=== PATIENT | male | born 1940 | race Caucasian/White ===

== ENCOUNTER 2020-07-04 15:41 | Emergency (ER) | payer MEDICARE, OTHER ==
[2020-07-04] MEDS ORDERED: Acetaminophen 500 MG Tab PO ONE (16:16)
[2020-07-04] MEDS ORDERED: Bisacodyl 10 MG Supp RECTAL ONE (16:18)
[2020-07-04] MEDS ORDERED: Sodium Chloride 0.9% 1,000 ML IV ONE (16:28)
--- NOTE | 2020-07-04 16:44 | CR ---
[id number] RAD/RAD Abdomen Flat Plate 1V Exam: RAD Abdomen Flat Plate 1V Clinical Data: ABDOMINAL PAIN COMPARISON: CORRELATION IS MADE WITH THE BARIUM ENEMA OF OCTOBER 06, 2016 FINDINGS: There is mild large bowel distention There is no significant large fecal volume There is no organomegaly or pathologic calcification IMPRESSION: NONSPECIFIC MILD LARGE BOWEL DISTENTION Demetri Bower MD 07/04/20 [id number] Thank you for allowing us to participate in the care of your patient.
[2020-07-04 17:04] VITALS: BP 106/72; PULSE 67
--- NOTE | 2020-07-04 17:06 | EDM.PDOC ---
ED HPI GENERAL MEDICAL PROBLEM - General Chief Complaint: General Stated Complaint: constipation, fever Time Seen by Provider: 07/04/20 16:00 Source of Information: Reports: Patient History Limitations: Reports: No Limitations - History of Present Illness INITIAL COMMENTS - FREE TEXT/NARRATIVE: 79-year-old male presents emergency room with complaints of fever and possible constipation. Patient states that he has been on an oral antibiotic for cellulitis of his left hand for approximately 1 month. He has not had a stool for the last 3 days and began feeling feverish today. He is noticed a little bit of left lower quadrant discomfort today. He denies any chills. He denies any respiratory symptoms. No chest pain or shortness of breath complaints. He denies any urinary pain or discomfort or retention. 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 - Related Data Allergies Allergy/AdvReac Type Severity Reaction Status Date / Time No Known Drug Allergies Allergy NKDA Verified 07/04/20 15:53 Home Meds: Home Meds Garlic 1 each PO DAILY 10/12/16 [History] Glucosamine [Glucosamine Sulfate] 500 mg PO DAILY 10/12/16 [History] Multivitamin with Minerals [Multiple Vitamin] 1 tab PO DAILY 10/12/16 [History] Cardinal-3/DHA/Epa/Fish Oil [Cardinal-3 Fish Oil 1,000 MG Sfgl] 1,000 mg PO DAILY 10/12/16 [History] Simvastatin [Zocor] 40 mg PO BEDTIME 10/12/16 [History] Terazosin [Hytrin] 5 mg PO DAILY 10/12/16 [History] Sulfamethoxazole/Trimethoprim [Bactrim Ds Tablet] 1 each PO BID 07/04/20 [History] Past Medical History HEENT History: Reports: Impaired Vision Musculoskeletal History: Reports: Arthritis Oncologic (Cancer) History: Reports: Prostate - Infectious Disease History Infectious Disease History: Reports: Measles, Mumps - Past Surgical History GI Surgical History: Reports: Colonoscopy Social & Family History - Family History Family Medical History: Noncontributory - Tobacco Use Smoking Status *Q: Former Smoker Used Tobacco, but Quit: Yes Month/Year Tobacco Last Used: quit 55-60 yrs ago - Caffeine Use Caffeine Use: Reports: Coffee, Soda, Tea - Recreational Drug Use Recreational Drug Use: No ED ROS GENERAL - Review of Systems Review Of Systems: See Below Constitutional: Reports: Fever HEENT: Reports: No Symptoms Respiratory: Reports: No Symptoms Cardiovascular: Reports: No Symptoms Endocrine: Reports: No Symptoms GI/Abdominal: Reports: Abdominal Pain, Constipation. Denies: Distension : Reports: No Symptoms Musculoskeletal: Reports: No Symptoms Skin: Reports: No Symptoms Neurological: Reports: No Symptoms Psychiatric: Reports: No Symptoms Hematologic/Lymphatic: Reports: No Symptoms Immunologic: Reports: No Symptoms ED EXAM, GENERAL - Physical Exam Exam: See Below Exam Limited By: No Limitations General Appearance: Alert, WD/WN, No Apparent Distress Eye Exam: Bilateral Eye: EOMI, PERRL (pupils equal) Ears: Hearing Grossly Normal Nose: Normal Inspection Throat/Mouth: Normal Voice, No Airway Compromise Head: Atraumatic, Normocephalic Neck: Normal Inspection, Supple, Full Range of Motion Respiratory/Chest: No Respiratory Distress, Lungs Clear, Normal Breath Sounds Cardiovascular: Normal Peripheral Pulses, Regular Rate, Rhythm, No Murmur GI/Abdominal: Normal Bowel Sounds, Soft, No Distention, Tender. No: Guarding, Rigid, Rebound Back Exam: Normal Inspection, Full Range of Motion Extremities: Normal Inspection, Normal Range of Motion Neurological: Alert, Oriented, CN II-XII Intact, Normal Cognition, Normal Gait, No Motor/Sensory Deficits Psychiatric: Normal Affect, Normal Mood Skin Exam: Warm, Dry, Intact, Normal Color, No Rash. No: Erythema, Rash Lymphatic: No Adenopathy Course - Vital Signs Last Recorded V/S: Last Vital Signs Temp 98.5 F 07/04/20 17:17 Pulse 67 07/04/20 17:03 Resp 18 07/04/20 17:03 BP 106/72 07/04/20 17:03 Pulse Ox 94 L 07/04/20 17:03 - Orders/Labs/Meds Orders: Active Orders 24 hr Category Date Time Status CULTURE URINE [RM] Stat Lab 07/04/20 16:18 Received Labs: Laboratory Tests 07/04/20 07/04/20 07/04/20 Range/Units 16:06 16:09 16:18 WBC 9.64 (5.00-10.00) 10^3/uL RBC 4.33 L (4.50-6.00) 10^6/uL Hgb 14.2 (13.0-17.0) g/dL Hct 42.0 (40.0-52.0) % MCV 97.0 H (82.0-92.0) fL MCH 32.8 H (27.0-31.0) pg MCHC 33.8 (32.0-36.0) g/dL RDW 13.5 (11.5-14.5) % Plt Count 130 L (150-400) 10^3/uL MPV 10.1 (7.4-10.4) fL Immature Gran % (Auto) 0.1 (0.0-5.0) % Neut % (Auto) 77.1 H (50.0-70.0) % Lymph % (Auto) 8.5 L (20.0-40.0) % [place] % (Auto) 12.7 H (2.0-8.0) % Eos % (Auto) 1.6 (1.0-3.0) % Baso % (Auto) 0.0 (0.0-1.0) % Neut # (Auto) 7.44 H (2.50-7.00) 10^3/uL Lymph # (Auto) 0.82 L (1.00-4.00) 10^3/uL [place] # (Auto) 1.22 H (0.10-0.80) 10^3/uL Eos # (Auto) 0.15 (0.10-0.30) 10^3/uL Baso # (Auto) 0.00 (0.00-0.10) 10^3/uL Immature Gran # (Auto) 0.01 (0.00-0.50) 10^3/uL Sodium 135 L (136-145) mmol/L Potassium 4.2 (3.3-5.3) mmol/L Chloride 101 (98-115) mmol/L Carbon Dioxide 22.0 (21.0-32.0) mmol/L Anion Gap 16.2 H (5-15) mmol/L BUN 19 (6-25) mg/dL Creatinine 1.44 H (0.51-1.17) mg/dL Est Cr Clr Drug Dosing 41.54 mL/min Estimated GFR (MDRD) 47 mL/min Glucose 117 H (75 - 99) mg/dL Calcium 8.9 (8.7-10.3) mg/dL C-Reactive Protein 9.8 H (0.0-0.9) mg/dL Specimen Type Urinvoid Urine Color Yellow (YELLOW) Urine Appearance Slightly cloudy H (CLEAR) Urine pH 7.0 (5.0-9.0) Ur Specific [place] 1.025 (1.005-1.030) Urine Protein Trace H (NEGATIVE) mg/dL Urine Glucose (UA) Negative (NEGATIVE) mg/dL Urine Ketones Negative (NEGATIVE) mg/dL Urine Occult Blood Trace-intact H (NEGATIVE) Urine Nitrite Negative (NEGATIVE) Urine Bilirubin Moderate H (NEGATIVE) Urine Urobilinogen 2.0 H (0.2-1.0) E.U./dL Ur Leukocyte Esterase Small H (NEGATIVE) Urine RBC 0-5 (0-5) /HPF Urine WBC >100 H (0-5) /HPF Ur Epithelial Cells Few /LPF Urine Bacteria Rare (NONE TO FEW) /HPF Meds: Medications Discontinued Medications Generic Name Dose Route Start Last Admin Trade Name Freq PRN Reason Stop Dose Admin Acetaminophen 1,000 mg 07/04/20 16:16 07/04/20 16:47 Tylenol Extra Strength PO 07/04/20 16:17 1,000 mg ONETIME ONE Administration Bisacodyl 10 mg 07/04/20 16:18 07/04/20 16:48 Dulcolax RECTAL 07/04/20 16:19 10 mg ONETIME ONE Administration Sodium Chloride 1,000 mls @ 1,000 mls/hr 07/04/20 16:28 07/04/20 16:47 Normal Saline IV 07/04/20 17:27 1,000 mls/hr .BOLUS ONE Administration - Re-Assessments/Exams Free Text/Narrative Re-Assessment/Exam: 07/04/20 17:16 IV was placed in right antecubital 1 L normal saline was given bolus. Patient was given 1000 mg of Tylenol p.o. Dulcolax suppository was given rectally for constipation. Departure - Departure Time of Disposition: 17:30 Disposition: Home, Self-Care 01 Condition: Good Clinical Impression: Dehydration fever Constipation Qualifiers: Constipation type: drug induced constipation Qualified Code(s): K59.03 - Drug induced constipation Fever Qualifiers: Fever type: unspecified Qualified Code(s): R50.9 - Fever, unspecified - Discharge Information Instructions: Fever, Adult, Constipation, Adult, Rehydration, Adult Referrals: Jagdeep Orozco MD [Primary Care Provider] - Forms: ED Department Discharge Additional Instructions: 1. Tylenol 325 mg 1-2 p.o. every 8 hours as needed for any fevers 2. Encourage patient to continue with oral hydration drinking 1 L of water daily 3. Recommend trying an [id number] stool softener to help prevent constipation 4. New with your home medications as prescribed 5. With primary care next week if symptoms are not improving. Sepsis Event Note (ED) - Evaluation Sepsis Screening Result: Possible Sepsis Risk - My Orders Last 24 Hours: My Active Orders 07/04/20 16:18 CULTURE URINE [RM] Stat - Assessment/Plan Last 24 Hours: My Active Orders 07/04/20 16:18 CULTURE URINE [RM] Stat Assessment:: 1. Constipation 2. Fever 3. Dehydration Plan: 1. Tylenol 325 mg 1-2 p.o. every 8 hours as needed for any fevers 2. Encourage patient to continue with oral hydration drinking 1 L of water daily 3. Recommend trying an [id number] stool softener to help prevent constipation 4. New with your home medications as prescribed 5. With primary care next week if symptoms are not improving.
[2020-07-04 18:00] LABS: ANION GAP 16.2 mmol/L (5-15)
== END 2020-07-04 18:40 | disposition home or self-care (01) ==
LOC: KA.ED 15:41
DX: K59.03 Drug induced constipation (principal); R50.9 Fever, unspecified; E86.0 Dehydration; T36.95XA Adverse effect of unspecified systemic antibiotic, initial encounter; Z87.891 Personal history of nicotine dependence; Z79.899 Other long term (current) drug therapy
CPT/HCPCS: 74018; 80048; 81001; 85025; 86140; 87086; 96360; 99284; A9270; J7030

== ENCOUNTER 2020-07-09 10:22 | Inpatient (IN) | payer MEDICARE, OTHER ==
[2020-07-09] MEDS ORDERED: Sodium Chloride 0.9% 10 ML Syringe FLUSH PRN (10:42)
[2020-07-09] MEDS ORDERED: Sodium Chloride 0.9% 1,000 ML IV SCH (10:45)
[2020-07-09] MEDS: Diatrizoate Meglumine/Diatrizoate Sodium 37% 30 ML Bottle PO ONE (11:15)
[2020-07-09] MEDS ORDERED: Piperacillin/Tazobactam/Dext 3.375 GM in Premix Bag 1 BAG IV SCH (11:30)
[2020-07-09] MEDS: Sodium Chloride 0.9% 50 ML IV SCH (12:18)
[2020-07-09] MEDS: Iopamidol 755 Mg/ML 100 ML Bottle IV ONE (12:18)
[2020-07-09] MEDS: Sodium Chloride 0.9% 1,000 ML IV ONE (12:30)
--- NOTE | 2020-07-09 13:08 | CT ---
[id number] CT/CT Abdomen Pelvis W IV EXAM: CT Abdomen Pelvis W IV CLINICAL DATA: UPPER ABDOMINAL PAIN. COMPARISON STUDY: None. FINDINGS: Lung bases are clear. Liver, spleen, gallbladder, pancreas, adrenal glands, and kidneys are unremarkable. No bowel obstruction or inflammation. Colonic diverticulosis without evidence of acute diverticulitis. No lymphadenopathy, free fluid, or pneumoperitoneum. Atherosclerotic changes of the aorta and its branches. There is a 4.0 cm infrarenal abdominal aortic aneurysm. 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 The prostate is enlarged. Small fat-containing bilateral inguinal hernias. Scattered changes of spondylosis the spine. No fracture or osseous lesion. IMPRESSION: 1. Colonic diverticulosis without evidence of acute diverticulitis. 2. Infrarenal abdominal aortic aneurysm measuring up to 4.0 cm. 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
[2020-07-09] MEDS: Sodium Chloride 0.9% 1,000 ML IV SCH (13:36)
[2020-07-09] MEDS: Piperacillin/Tazobactam/Dext 3.375 GM in Premix Bag 1 BAG IV SCH (13:38)
[2020-07-09 15:07] VITALS: BP 115/66; PULSE 74
== END 2020-07-09 16:10 | DRG 444 ==
LOC: KA.MS 10:28
PROVIDERS: ADMIT Nurse Practitioner Family; ATTEND Nurse Practitioner Family
DX: K83.09 Other cholangitis (principal); K85.90 Acute pancreatitis without necrosis or infection, unspecified; L03.114 Cellulitis of left upper limb; Z20.828 Contact with and (suspected) exposure to other viral communicable diseases; R35.0 Frequency of micturition; E86.0 Dehydration
CPT/HCPCS: 36415; 74177; 83605; 87040; J2543; J7030; Q9963; Q9967

== ENCOUNTER 2025-02-09 18:57 | Emergency (ER) | payer MEDICARE ==
[2025-02-09] MEDS: Acetaminophen 500 MG Tab PO ONE (19:25)
[2025-02-09] MEDS: Sodium Chloride 0.9% 1,000 ML IV SCH (19:27)
[2025-02-09 19:47] LABS: ALBUMIN 2.88 g/dL (3.40-5.00); BILIRUBIN TOTAL 0.3 mg/dL (0.2-1.0); C-REACTIVE PROTEIN 6.27 mg/dL (0.00-0.50); CALCIUM 8.8 mg/dL (8.7-10.3); CARBON DIOXIDE,CO2 25.2 mmol/L (21.0-32.0); CREATININE 1.2 mg/dL (0.51-1.17); EST CRCL DRUG DOSING (CG) 45.63 mL/min; POTASSIUM,K 4.2 mmol/L (3.5-5.1); PROTEIN TOTAL,TP 7.1 g/dL (6.4-8.2)
[2025-02-09 19:51] LABS: APPEARANCE,URINE SLIGHTLY CLOUDY (CLEAR); BILIRUBIN,URINE SMALL (NEGATIVE); COLOR,URINE YELLOW (YELLOW); GLUCOSE,URINE NEGATIVE (NEGATIVE); KETONES,URINE NEGATIVE (NEGATIVE); LEUKOCYTE ESTERASE,URINE TRACE (NEGATIVE); NITRITE,URINE NEGATIVE (NEGATIVE); PROTEIN,URINE 100 mg/dL (NEGATIVE)
[2025-02-09 19:52] LABS: BASOPHILS ABSOLUTE AUTO 0.01 10^3/uL (0.00-0.10); BASOPHILS PERCENT AUTO 0.1 % (0.0-1.0); EOSINOPHILS ABSOLUTE AUTO 0.09 10^3/uL (0.10-0.30); EOSINOPHILS PERCENT AUTO 0.8 % (1.0-3.0); HEMATOCRIT 37.8 % (40.0-52.0); HEMOGLOBIN 12.7 g/dL (13.0-17.0); IMMATURE GRAN ABSOLUTE AUTO 0.07 10^3/uL (0.00-0.04); IMMATURE GRAN PERCENT AUTO 0.6 % (0.0-0.4); LYMPHOCYTES ABSOLUTE AUTO 1.46 10^3/uL (1.00-4.00); LYMPHOCYTES PERCENT AUTO 12.4 % (20.0-40.0); MEAN CORPUSCULAR HEMOGLOBIN 32.4 pg (27.0-31.0); MEAN CORPUSCULAR HGB CONC 33.6 g/dL (32.0-36.0); MEAN CORPUSCULAR VOLUME 96.4 fL (82.0-92.0); MEAN PLATELET VOLUME 9.4 fL (7.4-10.4); MONOCYTES ABSOLUTE AUTO 1.46 10^3/uL (0.10-0.80); MONOCYTES PERCENT AUTO 12.4 % (2.0-8.0); NEUTROPHILS ABSOLUTE AUTO 8.72 10^3/uL (2.50-7.00); NEUTROPHILS PERCENT AUTO 73.7 % (50.0-70.0); PLATELET COUNT,PLT 299 10^3/uL (150-400); RED BLOOD CELL COUNT 3.92 10^6/uL (4.50-6.00); RED CELL DISTRIBUTION WIDTH 13.3 % (11.5-14.5); WHITE BLOOD CELL COUNT,WBC 11.81 10^3/uL (5.00-10.00)
[2025-02-09 19:52] LABS: OCCULT BLOOD,URINE MODERATE (NEGATIVE)
[2025-02-09 19:54] LABS: BACTERIA,URINE RARE /HPF (NONE TO FEW); EPITHELIAL CELLS,URINE RARE /LPF; RBC,URINE 20-30 /HPF (0-5); WBC,URINE 0-5 /HPF (0-5)
[2025-02-09] MEDS: cefTRIAXone 1 GM Vial IVPUSH ONE (20:11)
[2025-02-09] MEDS: cefTRIAXone 1 GM in Sodium Chloride 0.9% 50 ML IV ONE (20:19)
[2025-02-09] MEDS: Azithromycin 500 MG in Sodium Chloride 0.9% 250 ML IV ONE (20:47)
[2025-02-09] MEDS: Iopamidol 755 Mg/ML 100 ML Bottle IV ONE (21:05)
[2025-02-09] MEDS: Sodium Chloride 0.9% 50 ML IV SCH (21:06)
[2025-02-09 21:20] VITALS: BP 109/65; PULSE 78
== END 2025-02-09 21:30 ==
LOC: KA.ED 18:57
DX: M19.90 Unspecified osteoarthritis, unspecified site (principal); Z88.2 Allergy status to sulfonamides; Z88.8 Allergy status to other drugs, medicaments and biological substances; Z79.899 Other long term (current) drug therapy; Z79.01 Long term (current) use of anticoagulants
CPT/HCPCS: 36415; 71045; 74177; 80053; 81001; 83605; 85025; 86140; 87040; 87086; 96361; 96365; 96375; 99284; 99285-25; A9270-GY; J0456; J0696; J7030; Q3014; Q9967

== ENCOUNTER 2025-02-22 16:09 | Emergency (ER) | payer MEDICARE ==
[2025-02-22 16:50] LABS: BASOPHILS ABSOLUTE AUTO 0.01 10^3/uL (0.00-0.10); BASOPHILS PERCENT AUTO 0.1 % (0.0-1.0); EOSINOPHILS ABSOLUTE AUTO 0.17 10^3/uL (0.10-0.30); EOSINOPHILS PERCENT AUTO 1.8 % (1.0-3.0); HEMATOCRIT 36.4 % (40.0-52.0); HEMOGLOBIN 11.9 g/dL (13.0-17.0); IMMATURE GRAN ABSOLUTE AUTO 0.04 10^3/uL (0.00-0.04); IMMATURE GRAN PERCENT AUTO 0.4 % (0.0-0.4); LYMPHOCYTES ABSOLUTE AUTO 1.98 10^3/uL (1.00-4.00); LYMPHOCYTES PERCENT AUTO 21.2 % (20.0-40.0); MEAN CORPUSCULAR HEMOGLOBIN 32.2 pg (27.0-31.0); MEAN CORPUSCULAR HGB CONC 32.7 g/dL (32.0-36.0); MEAN CORPUSCULAR VOLUME 98.4 fL (82.0-92.0); MONOCYTES ABSOLUTE AUTO 1.51 10^3/uL (0.10-0.80); MONOCYTES PERCENT AUTO 16.2 % (2.0-8.0); NEUTROPHILS ABSOLUTE AUTO 5.61 10^3/uL (2.50-7.00); NEUTROPHILS PERCENT AUTO 60.3 % (50.0-70.0); PLATELET COUNT,PLT 269 10^3/uL (150-400); RED CELL DISTRIBUTION WIDTH 13.6 % (11.5-14.5); WHITE BLOOD CELL COUNT,WBC 9.32 10^3/uL (5.00-10.00)
[2025-02-22 16:53] LABS: APPEARANCE,URINE CLEAR (CLEAR); BILIRUBIN,URINE NEGATIVE (NEGATIVE); COLOR,URINE YELLOW (YELLOW); GLUCOSE,URINE NEGATIVE (NEGATIVE); KETONES,URINE TRACE mg/dL (NEGATIVE); LEUKOCYTE ESTERASE,URINE TRACE (NEGATIVE); NITRITE,URINE NEGATIVE (NEGATIVE); OCCULT BLOOD,URINE MODERATE (NEGATIVE); PH,URINE 5.5 (5.0-9.0); PROTEIN,URINE 100 mg/dL (NEGATIVE); UROBILINOGEN,URINE 0.2 E.U./dL (0.2-1.0)
[2025-02-22 17:04] LABS: BACTERIA,URINE FEW /HPF (NONE TO FEW); EPITHELIAL CELLS,URINE RARE /LPF; OTHER CRYSTALS,URINE NOT SEEN /HPF; WBC,URINE 20-30 /HPF (0-5)
[2025-02-22 17:14] LABS: ANION GAP 11.6 mmol/L (5-15); BILIRUBIN TOTAL 0.4 mg/dL (0.2-1.0); CARBON DIOXIDE,CO2 29.7 mmol/L (21.0-32.0); POTASSIUM,K 4.3 mmol/L (3.5-5.1)
[2025-02-22 17:15] LABS: C-REACTIVE PROTEIN 1.84 mg/dL (0.00-0.50); CREATININE 1.22 mg/dL (0.51-1.17); EST CRCL DRUG DOSING (CG) 44.88 mL/min
[2025-02-22 17:16] LABS: ALBUMIN 2.98 g/dL (3.00-4.80); CALCIUM 8.7 mg/dL (8.7-10.3)
[2025-02-22] MEDS: Sodium Chloride 0.9% 1,000 ML IV ONE (18:59)
[2025-02-22] MEDS: Iopamidol 755 Mg/ML 100 ML Bottle IV ONE (19:14)
[2025-02-22] MEDS: Sodium Chloride 0.9% 100 ML IV SCH (19:15)
[2025-02-22 19:47] VITALS: BP 121/70; PULSE 63
== END 2025-02-22 20:06 | disposition home or self-care (01) ==
LOC: KA.ED 16:09
DX: R06.02 Shortness of breath (principal); R31.9 Hematuria, unspecified; R79.89 Other specified abnormal findings of blood chemistry; Z88.8 Allergy status to other drugs, medicaments and biological substances; Z88.2 Allergy status to sulfonamides
CPT/HCPCS: 36415; 71275; 80053; 81001; 85025; 85379; 86140; 87086; 99285; J7030; Q9967